=== PATIENT | male | born 1955 | race Caucasian/White ===

== ENCOUNTER → 2019-12-06 | Outpatient (CLI) | payer OTHER | LOC: PT 15:28 | DX: M17.11 Unilateral primary osteoarthritis, right knee (principal); Z96.651 Presence of right artificial knee joint ==

== ENCOUNTER 2020-04-09 11:00 | Outpatient (RCR) | payer MEDICAID | END 2020-04-09 11:30 | LOC: PT 11:00 | DX: Z48.89 Encounter for other specified surgical aftercare (principal); Z96.651 Presence of right artificial knee joint ==

== ENCOUNTER 2020-05-14 11:15 | Outpatient (RCR) | payer MEDICAID, OTHER | END 2020-05-14 12:00 | disposition home or self-care (01) | LOC: PT 11:15 | DX: Z96.651 Presence of right artificial knee joint (principal) ==

== ENCOUNTER 2020-06-19 05:07 | Inpatient (IN) | payer OTHER ==
[~2020-06-19] VITALS: Ht 175.3 cm; Wt 75.5 kg
[2020-06-19] MEDS ORDERED: HYDROCHLOROTHIA1 T14 PO (05:19)
[2020-06-19] MEDS ORDERED: NORCO 325 MG-7.1 TA1 PO (05:19)
[2020-06-19] MEDS ORDERED: ATORVASTATIN CA40 MG PO (05:19)
[2020-06-19] MEDS ORDERED: OMEPRAZOLE40 MG PO (05:19)
[2020-06-19 06:05] LABS: EOS # 0.2 (0.04-0.40); EOS % 1.8 % (0.0-4.0); HEMATOCRIT 44.2 % (42.0-52.0); HEMOGLOBIN 14.4 g/dL (13.5-18.0); LYMPH# 1.7 (1.50-4.00); MEAN CELL VOLUME 91 fl (78-100); MEAN CORPUSCULAR HEMOGLOBIN 30 pg (27-31); MEAN CORPUSCULAR HGB CONC 33 g/dL (33-37); MEAN PLATELET VOLUME 10.9 fl (7.4-10.4); MONO # 1.1 (0.20-0.80); NEU # 10.1 (1.40-6.50); PLATELET COUNT 408 K/mm3 (130-400); RED BLOOD COUNT 4.84 M/mm3 (4.20-5.60); RED CELL DISTRIBUTION WIDTH 13.2 % (11.5-14.5); WHITE BLOOD COUNT 13.2 K/mm3 (4.8-10.8)
[2020-06-19 06:14] LABS: URINE APPEARANCE CLEAR; URINE BILIRUBIN NEGATIVE (NEGATIVE); URINE BLOOD NEGATIVE (NEGATIVE); URINE COLOR YELLOW; URINE GLUCOSE NEGATIVE (NEGATIVE); URINE KETONE NEGATIVE (NEGATIVE); URINE LEUKOCYTE ESTERASE NEGATIVE (NEGATIVE); URINE NITRATE NEGATIVE (NEGATIVE); URINE PROTEIN(semi-quant) NEGATIVE (NEGATIVE); URINE UROBILINOGEN NORMAL (NORMAL)
[2020-06-19 06:15] LABS: ALBUMIN 3.8 g/dL (3.4-4.8); CALCIUM 9.3 mg/dL (8.3-10.5); TOTAL BILIRUBIN 0.4 mg/dL (0.2-1.2)
[2020-06-19 09:04] VITALS: BP 144/82
[2020-06-19 09:08] VITALS: BP 144/812
--- NOTE | 2020-06-19 11:59 | NUR ---
BISI FROM PT UP TO SEE PATIENT AND GET THE OUTPATIENT PHYISCAL THERAPY SET UP. PATIENT WOULD LIKE PT WHILE INPATIENT ALSO. PROVIDER IS NOTIFIED.
--- NOTE | 2020-06-19 13:35 | NUR ---
patient resting in bed in room. Remains NPO and plan is to stay for a couple of nights. Patient is cooperative and calm.
[2020-06-19 13:56] VITALS: BP 115/80
[2020-06-19 17:26] VITALS: BP 120/77
[2020-06-19 22:00] VITALS: BP 130/81
[2020-06-20 02:22] VITALS: BP 119/78
[2020-06-20 06:37] VITALS: BP 112/79
[2020-06-20 07:04] LABS: EOS # 0.2 (0.04-0.40); EOS % 2.3 % (0.0-4.0); HEMOGLOBIN 13.3 g/dL (13.5-18.0); LYMPH# 1.8 (1.50-4.00); MEAN CELL VOLUME 92 fl (78-100); MEAN CORPUSCULAR HEMOGLOBIN 30 pg (27-31); MEAN CORPUSCULAR HGB CONC 32 g/dL (33-37); MEAN PLATELET VOLUME 10.7 fl (7.4-10.4); MONO # 0.7 (0.20-0.80); NEU # 5.6 (1.40-6.50); PLATELET COUNT 368 K/mm3 (130-400); RED BLOOD COUNT 4.46 M/mm3 (4.20-5.60); WHITE BLOOD COUNT 8.4 K/mm3 (4.8-10.8)
[2020-06-20 07:13] LABS: POTASSIUM 4.1 mmol/L (3.5-5.1)
[2020-06-20 07:14] LABS: ALBUMIN 3.6 g/dL (3.4-4.8)
[2020-06-20 07:15] LABS: CALCIUM 9.1 mg/dL (8.3-10.5)
[2020-06-20 07:17] LABS: TOTAL PROTEIN 6.7 g/dL (6.2-8.1)
[2020-06-20 07:18] LABS: TOTAL BILIRUBIN 0.8 mg/dL (0.2-1.2)
--- NOTE | 2020-06-20 08:30 | NUR ---
PT UPGRADED TO GENERAL DIET FOR BREAKFAST, TOLERATED BREAKFAST WELL, REPORTS "ZERO ABDOMINAL PAIN" SINCE BEING ADMITTED, ONLY C/O RIGHT SHOULDER PAIN PT HAD SURGERY 1 WEEK AGO ON SHOULDER, REQUESTING TO CHANGE FROM IV MORPHINE TO PRN ORAL NORCO THIS IS WHAT HE TAKES AT HOME AND HE PREFERS THE DURATION OF NORCO OVER THE MORPHINE, PROVIDER NOTIFIED
[2020-06-20 09:59] VITALS: BP 119/69
[2020-06-20 13:49] VITALS: BP 119/78
--- NOTE | 2020-06-20 14:15 | NUR ---
ALL DC PAPERWORK REVIEWED AND UNDERSTOOD, IV REMOVED FROM LEFT FA, DENIES FURTHER QUESTIONS REGARDING NEW ANTIBOTIC WRITTEN PRESCRIPTION OR FOLLOW UP APPOINTMENTS IN THE FUTURE, ALL BELONGINGS ACCOUNTED FOR, ESCORTED TO DOOR VIA WHEELCHAIR, FAMILY PROVIDING TRANSPORTATION POV AT THIS TIME
== END 2020-06-20 14:17 | disposition home or self-care (01) | DRG 392 ==
LOC: ED 05:07 → MED/SURG 08:28
PROVIDERS: Family Medicine; ADMIT Physician Assistant
DX: K57.32 Diverticulitis of large intestine without perforation or abscess without bleeding (principal); I10 Essential (primary) hypertension; K21.9 Gastro-esophageal reflux disease without esophagitis; M25.811 Other specified joint disorders, right shoulder; M25.562 Pain in left knee; F17.210 Nicotine dependence, cigarettes, uncomplicated; Z20.828 Contact with and (suspected) exposure to other viral communicable diseases; Z79.891 Long term (current) use of opiate analgesic; Z96.651 Presence of right artificial knee joint
CPT/HCPCS: J1650; J2270; J2543; J7030; Q9967

== ENCOUNTER 2020-07-08 11:00 | Outpatient (RCR) | payer OTHER ==
[~2020-07-08 11:00] MED LIST: ATORVASTATIN CA40 MG PO; HYDROCHLOROTHIA1 T14 PO; NORCO 325 MG-7.1 TA1 PO; OMEPRAZOLE40 MG PO
== END 2020-07-14 | disposition home or self-care (01) ==
LOC: PT
DX: M25.511 Pain in right shoulder (principal)

== ENCOUNTER 2020-07-15 11:00 | Outpatient (RCR) | payer OTHER | END 2020-10-13 | disposition home or self-care (01) | LOC: PT | DX: M25.511 Pain in right shoulder (principal); Z98.890 Other specified postprocedural states ==

== ENCOUNTER 2020-07-22 11:10 | Outpatient (RCR) | payer OTHER | END 2020-08-12 13:58 | disposition home or self-care (01) | LOC: PT 11:10 | DX: M25.512 Pain in left shoulder (principal) ==

== ENCOUNTER → 2020-09-29 | Outpatient (CLI) | payer OTHER | LOC: RAD 13:00 | DX: M17.12 Unilateral primary osteoarthritis, left knee (principal) ==

== ENCOUNTER 2020-11-12 13:05 | Outpatient (RCR) | payer OTHER | END 2021-02-10 | disposition home or self-care (01) | LOC: PT | DX: M25.562 Pain in left knee (principal) ==

== ENCOUNTER 2021-07-08 15:03 | Outpatient (RCR) | payer MEDICARE, OTHER | END 2021-07-10 23:59 | disposition home or self-care (01) | LOC: PT 15:03 | DX: M41.80 Other forms of scoliosis, site unspecified (principal) ==

== ENCOUNTER 2021-07-14 14:59 | Outpatient (RCR) | payer MEDICARE, OTHER | END 2021-08-10 | disposition home or self-care (01) | LOC: PT | DX: M41.80 Other forms of scoliosis, site unspecified (principal) ==

== ENCOUNTER 2021-08-11 15:30 | Outpatient (RCR) | payer MEDICARE | END 2021-08-11 17:00 | disposition home or self-care (01) | LOC: PT 15:30 | DX: M41.80 Other forms of scoliosis, site unspecified (principal) ==

== ENCOUNTER 2021-12-23 17:33 | Emergency (ER) | payer MEDICARE, OTHER ==
[~2021-12-23] VITALS: Ht 172.7 cm; Wt 75.5 kg
[2021-12-23] MEDS ORDERED: OXYCODONE HCL10 M1 PO (17:51)
[2021-12-23 18:15] LABS: BASO # 0.02 K/mm3 (0.02-0.10); EOS # 0.07 K/mm3 (0.04-0.40); EOS % 0.5 % (0.0-4.0); HEMATOCRIT 43.4 % (42.0-52.0); HEMOGLOBIN 14.7 g/dL (13.5-18.0); LYMPH# 1.83 K/mm3 (1.50-4.00); MEAN CELL VOLUME 94 fl (78-100); MEAN CORPUSCULAR HEMOGLOBIN 32 pg (27-31); MEAN CORPUSCULAR HGB CONC 34 g/dL (33-37); MEAN PLATELET VOLUME 10.4 fl (7.4-10.4); MONO # 1.22 K/mm3 (0.20-0.80); NEU # 9.67 K/mm3 (1.40-6.50); PLATELET COUNT 333 K/mm3 (130-400); RED BLOOD COUNT 4.63 M/mm3 (4.20-5.60); RED CELL DISTRIBUTION WIDTH 12.7 % (11.5-14.5); WHITE BLOOD COUNT 12.9 K/mm3 (4.8-10.8)
[2021-12-23 18:24] LABS: POTASSIUM 3.9 mmol/L (3.5-5.1); SODIUM 140 mmol/L (136-145)
[2021-12-23 18:25] LABS: ALBUMIN 4.2 g/dL (3.4-4.8)
[2021-12-23 18:26] LABS: CALCIUM 9.8 mg/dL (8.3-10.5)
[2021-12-23 18:27] LABS: TOTAL PROTEIN 7.2 g/dL (6.2-8.1)
[2021-12-23 18:28] LABS: CARBON DIOXIDE 23 mmol/L (23-31); GLUCOSE 98 mg/dL (75-110)
[2021-12-23 18:29] LABS: TOTAL BILIRUBIN 0.7 mg/dL (0.2-1.2)
[2021-12-23 18:32] LABS: AST-SGOT 20 U/L (5-34)
[2021-12-23 18:35] LABS: ALT/SGPT 19 U/L (0-55)
[2021-12-23 18:45] LABS: TROPONIN-I < 0.030 ng/mL (<0.030)
[2021-12-23] MEDS ORDERED: PREDNISONE20 MG PO (19:12)
[2021-12-23] MEDS ORDERED: AMOXICILLIN875 MG PO (19:12)
[2021-12-23] MEDS ORDERED: PROAIR HFA0.09 MG/AC IH (19:12)
[2021-12-23 19:32] LABS: URINE APPEARANCE CLEAR; URINE BILIRUBIN NEGATIVE (NEGATIVE); URINE BLOOD NEGATIVE (NEGATIVE); URINE COLOR YELLOW; URINE GLUCOSE NEGATIVE (NEGATIVE); URINE KETONE NEGATIVE (NEGATIVE); URINE LEUKOCYTE ESTERASE NEGATIVE (NEGATIVE); URINE NITRATE NEGATIVE (NEGATIVE); URINE PROTEIN(semi-quant) 1+ (NEGATIVE); URINE UROBILINOGEN NORMAL (NORMAL)
[2021-12-23 19:33] LABS: URINE MUCUS PRESENT (NOT PRESENT)
[2021-12-23 19:39] VITALS: BP 135/68
[2021-12-23] MEDS ORDERED: AMOXICILLIN AND1 TA2 PO (20:48)
== END 2021-12-23 19:39 | disposition home or self-care (01) ==
LOC: ED 17:33
PROVIDERS: Physician Assistant
DX: J44.1 Chronic obstructive pulmonary disease with (acute) exacerbation (principal); J32.9 Chronic sinusitis, unspecified; N28.9 Disorder of kidney and ureter, unspecified; F17.210 Nicotine dependence, cigarettes, uncomplicated; Z28.310 Unvaccinated for COVID-19
CPT/HCPCS: J7512

== ENCOUNTER → 2022-04-07 | Day surgery (SDC) | payer MEDICARE ==
[~2022-04-07] MED LIST changes: +AMOXICILLIN AND1 TA2 PO; +AMOXICILLIN875 MG PO; +OXYCODONE HCL10 M1 PO; +PREDNISONE20 MG PO; +PROAIR HFA0.09 MG/AC IH
== END ==
LOC: MSO 10:30
DX: H25.12 Age-related nuclear cataract, left eye (principal)
CPT/HCPCS: 00142; J0171; J2250; J3010; V2632

== ENCOUNTER → 2024-01-23 | Outpatient (CLI) | payer MEDICARE | LOC: RAD 09:54 | DX: M47.816 Spondylosis without myelopathy or radiculopathy, lumbar region (principal); M51.36 Other intervertebral disc degeneration, lumbar region; M48.062 Spinal stenosis, lumbar region with neurogenic claudication ==

== ENCOUNTER 2024-08-18 06:32 | Emergency (ER) | payer MEDICARE ==
[~2024-08-18] VITALS: Ht 167.6 cm; Wt 72.3 kg
[2024-08-18] MEDS ORDERED: BREZTRI AEROS10.7 GM IH (06:44)
[2024-08-18] MEDS ORDERED: SERTRALINE50 MG PO (06:45)
[2024-08-18] MEDS ORDERED: DESYREL 100MG100 MG PO (06:45)
[2024-08-18] MEDS ORDERED: Acetaminophen 325 MG TAB PO ONE (07:30)
[2024-08-18] MEDS ORDERED: oxyCODONE/Acetaminophen 10-325 MG TAB PO ONE (07:30)
[2024-08-18 08:18] VITALS: BP 148/76
== END 2024-08-18 08:20 | disposition home or self-care (01) ==
LOC: ED 06:32
DX: M25.552 Pain in left hip (principal); M54.50 Low back pain, unspecified; M53.3 Sacrococcygeal disorders, not elsewhere classified; Z87.891 Personal history of nicotine dependence; X50.1XXA Overexertion from prolonged static or awkward postures, initial encounter; W18.30XA Fall on same level, unspecified, initial encounter

== ENCOUNTER → 2024-08-31 | Outpatient (CLI) | payer MEDICARE ==
[~2024-08-31] MED LIST changes: +BREZTRI AEROS10.7 GM IH; +DESYREL 100MG100 MG PO; +SERTRALINE50 MG PO
== END ==
LOC: RAD 12:20
DX: S72.145A Nondisplaced intertrochanteric fracture of left femur, initial encounter for closed fracture (principal); X58.XXXA Exposure to other specified factors, initial encounter

== ENCOUNTER → 2024-09-28 | Outpatient (CLI) | payer MEDICARE | LOC: RAD 15:23 | DX: M47.816 Spondylosis without myelopathy or radiculopathy, lumbar region (principal); M41.86 Other forms of scoliosis, lumbar region ==